=== PATIENT | male | born 2000 | race Caucasian/White ===

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

== ENCOUNTER 2023-03-05 10:49 | Emergency (ER) | payer OTHER ==
[2023-03-05 11:05] VITALS: PULSE 76; TEMP 98.5; O2SAT 98
--- NOTE | 2023-03-05 11:16 | ERPHSYRPT ---
- History of Present Illness Source: patient, other () Exam Limitations: no limitations Patient Subjective Stated Complaint: Pt was at this ER yesterday and was found to have a DVT in his left leg, today pt woke up and he has the same pain in his right leg and feels that he has another DVT Triage Nursing Assessment: Pt brought to the ER by his , vitals wnl, rates pain as 7/10, pulses normal, right calf warm and tender, pt started Eliquis yesterday, no difficulties breathing, doesn't appear to be in any distress Physician History: 23 yo WM diagnosed w a L DVT yesterday and started on Eliquis woke up w R calf pain which he rates a 6. Pt denies injury/chest pain/dyspnea. Method of Injury: unknown Occurred: this morning Quality: constant Severity of Pain-Max: moderate Severity of Pain-Current: moderate Lower Extremities Pain: leg: right Modifying Factors: Improves With: nothing, movement Associated Symptoms: none Allergies/Adverse Reactions: No Known Drug Allergies Allergy (Verified 03/05/23 11:05) Home Medications: Apixaban [Eliquis] 5 mg PO BID 03/05/23 [History] Hx Tetanus, Diphtheria Vaccination/Date Given: No Hx Influenza Vaccination/Date Given: No Hx Pneumococcal Vaccination/Date Given: No Travel Risk - International Travel Have you traveled outside of the country in past 3 weeks: No - Coronavirus Screening Are you exhibiting any of the following symptoms?: No Close contact with a COVID-19 positive Pt in past 14-21 Days: No - Vaccine Status Have you recieved a Covid-19 vaccination: Yes Equipment Validation Specialist: Moderna - Vaccination Dates Date of 2cond Vaccination (if applicable): 2020 - Review of Systems Constitutional: No Symptoms Eyes: No Symptoms Ears, Nose, & Throat: No Symptoms Respiratory: No Symptoms Cardiac: No Symptoms Abdominal/Gastrointestinal: No Symptoms Genitourinary Symptoms: No Symptoms Skin: No Symptoms Neurological: No Symptoms Psychological: No Symptoms Endocrine: No Symptoms Hematologic/Lymphatic: No Symptoms Immunological/Allergic: No Symptoms - Past Medical History Pertinent Past Medical History: Yes Neurological History: No Pertinent History ENT History: No Pertinent History Cardiac History: Deep Vein Thrombosis, Hypertension Respiratory History: Asthma Endocrine Medical History: No Pertinent History Musculoskeletal History: No Pertinent History GI Medical History: No Pertinent History History: No Pertinent History Psycho-Social History: No Pertinent History Male Reproductive Disorders: No Pertinent History Other Medical History: SEASONAL ALLERGIES - Past Surgical History Past Surgical History: Yes Neuro Surgical History: No Pertinent History Cardiac: No Pertinent History Respiratory: No Pertinent History Gastrointestinal: No Pertinent History Genitourinary: No Pertinent History Musculoskeletal: No Pertinent History Male Surgical History: No Pertinent History Other Surgical History: TUBES. ADNOIDS - Social History Smoking Status: Never smoker Exposure to second hand smoke: No Drug Use: none Patient Lives Alone: No - Nursing Vital Signs Nursing Vital Signs: Initial Vital Signs Temperature 98.5 F 03/05/23 10:57 Pulse Rate 76 03/05/23 10:57 Blood Pressure 137/77 03/05/23 10:57 O2 Sat by Pulse Oximetry 98 03/05/23 10:57 Pain Scale Pain Intensity 7 WNL - Physical Exam General Appearance: no apparent distress Eyes, Ears, Nose, Throat Exam: normal ENT inspection, TMs normal, pharynx normal, moist mucous membranes Neck Exam: normal inspection, non-tender, supple, full range of motion, No Brudzinski, No Kernig's, No meningismus, No carotid bruit Cardiovascular/Respiratory Exam: normal breath sounds, regular rate/rhythm, heart sounds normal Gastrointestinal/Abdominal Exam: non-tender, soft Back Exam: normal inspection, normal range of motion, No CVA tenderness, No vertebral tenderness Hips Exam: bilateral: non-tender, normal inspection, normal range of motion, no evidence of injury Legs Exam: right leg: other (R calf w mild TTP/Good pedal pulse, distal sensation, and capillary return) Knees Exam: bilateral knee: non-tender, normal inspection, normal range of motion, no evidence of injury Ankle Exam: bilateral ankle: non-tender, normal inspection, normal range of motion, no evidence of injury Foot Exam: bilateral foot: non-tender, normal inspection, normal range of motion, no evidence of injury Neuro/Tendon Exam: normal sensation, normal motor functions, normal tendon functions, responds to pain, no evidence tendon injury, No motor deficit, No sensory deficit Mental Status Exam: alert, oriented x 3, cooperative Skin Exam: normal color, warm, dry SpO2 Interpretation: normal SpO2: 98 O2 Delivery: Room Air - Radiology Ultrasound Exam Venous Lower Extremity Ultrasound: discussed w/radiologist (RLE DVT) Ordered Tests: Active Orders 24 hr Category Date Time Status VENOUS UNILAT/LIMITED EXTREMIT [US] Stat Exams 03/05/23 11:12 Completed - Progress Progress: improved Progress Note: 03/05/23 20:01 Nursing note and vital signs reviewed No food or housing insecurities noted Ptr refused all pain meds US results reviewed and shared w pt/ Pt advised to continue eliquis Counseled pt/family regarding: diagnosis, need for follow-up, rad results Medical Desision Making - Independent Historian Additional History obtained from: Spouse - Diagnostic Testing Radiological Interpretation: Reviewed by me, Discussed w/ radiologist - Risk of complications The pt has a mod risk of morbidity or mortality based on: Need for prescription drug management - Departure Departure Disposition: Home Clinical Impression: DVT (deep venous thrombosis) Condition: Stable Critical Care Time: No Referrals: ARANZA QUESADA [Primary Care Provider] - Follow up/PCP as directed Instructions: Deep vein thrombosis (blood clot in the legs) Additional Instructions: Continue with Eliquis Tylenol/Naproxen for pain Return to ER as needed
[2023-03-05 12:11] VITALS: BP 147/79
--- NOTE | 2023-03-05 12:16 | XRAY ---
Indication: Right calf pain. Two-dimensional sonogram and color Doppler imaging of the major venous vessels of the right leg performed. Comparison: March 26, 2022 Posterior calf now demonstrates occluding thrombi in small saphenous vein. Thrombi slightly extends into tributary with popliteal vein. No thrombus in the remaining deep venous vessels of the right leg including greater saphenous vein. Patent veins demonstrate normal compressibility and normal venous waveforms. Impression: Occluding thrombi in small saphenous vein. Remaining right leg negative for DVT.
== END 2023-03-05 12:44 | disposition home or self-care (01) ==
LOC: ED 10:49
DX: I82.401 Acute embolism and thrombosis of unspecified deep veins of right lower extremity (principal); M79.661 Pain in right lower leg; I10 Essential (primary) hypertension; Z79.01 Long term (current) use of anticoagulants
CPT/HCPCS: 93971; 99282